=== PATIENT | female | born 1955 | race Caucasian/White ===

== ENCOUNTER 2018-01-01 19:19 | Emergency (ER) | payer OTHER ==
[~2018-01-01] VITALS: Ht 154.9 cm; Wt 81.6 kg
[~2018-01-01 19:19] MED LIST: TOPROL XL25 M1 PO
--- NOTE | 2018-01-01 22:25 | ED GENERAL ADULT ---
History of Present Illness General Chief Complaint: General Adult Stated Complaint: SIB WALK IN HIGH BLOOD PRESURE Source: patient Exam Limitations: no limitations Vital Signs & Intake/Output Vital Signs & Intake/Output Vital Signs Date Time Temp Pulse Resp B/P B/P Pulse O2 O2 Flow FiO2 Mean Ox Delivery Rate 01/02 0300 68 18 109/53 99 Room Air 01/02 0100 66 18 118/60 01/02 0000 66 18 110/64 01/01 2320 66 18 170/87 01/01 2310 68 18 181/93 01/01 2306 64 18 179/83 01/01 2304 64 18 179/83 01/01 2300 70 18 192/95 01/01 2258 70 18 192/95 01/01 2245 200/98 01/01 1932 97.9 83 18 183/96 98 Room Air ED Intake and Output 01/02 0000 01/01 1200 Intake Total 0 Output Total Balance 0 Intake, Oral 0 Patient 180 lb Weight Weight Reported by Patient Measurement Method Allergies Coded Allergies: NO KNOWN ALLERGIES (11/05/15) Reconcile Medications Carvedilol 12.5 MG TABLET 1 TAB PO BID HIGH BLOOD PRESSURE Metoprolol Succ XL (Toprol XL) 25 MG TAB 1 TAB PO DAILY HIGH BLOOD PRESSURE Triage Note: PT FROM HOME C/O HTN X3 DAYS. PT SENT IN BY WALK IN CLINIC FOR HTN WITH MIGRAINE/HEAD PAIN FOR THE PAST 3 DAYS. PT DENIES BLURRY VISION. PT STATES PHOTOSENSIVITY. PTS BP IN TRIAGE 183/96. PT IS CURRENTLY ON 3 DIFFERENT BP MEDICATIONS WITHOUT RELIEF. PT DID STATES SHE MISSED SOME DOSES OF MEDICATION THIS PAST WEEKEND D/T HEADACHE SHE THOUGHT WAS A SIDE EFFECT. PT IS LETHARGIC AND DIZZY. 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 yes Onset: Gradual Duration: day(s):, waxing and waning Timing: recent history Injury Environment: home Severity: moderate Modifying Factors: Improves With: rest. Associated Symptoms: "My blood pressure is high." HPI: 62 yo woman h/o labile hypertension presents with headache and elevated blood pressure. She shares that for the past 3 days her blood pressure has been elevated with a sbp in the 180's-190's. Her baseline is 160/90's. She has noted headache and mild dizziness, without chest pain, shortness of breath, radiating pain. She is otherwise well. Past History Travel History Traveled to [place] past 21 day No Medical History Any Pertinent Medical History? see below for history Cardiovascular: hypertension, ATHEROSCLEROSIS Hepatic: cholelithiasis Surgical History Surgical History: non-contributory Psychosocial History Who do you live with Spouse Services at Home None What is your primary language Upper Sorbian Tobacco Use: Quit >30 days ago Family History Hx Contributory? No Review of Systems Review of Systems Constitutional: Reports: no symptoms. EENTM: Reports: no symptoms. Respiratory: Reports: no symptoms. Cardiovascular: Reports: no symptoms. GI: Reports: no symptoms. Genitourinary: Reports: no symptoms. Musculoskeletal: Reports: no symptoms. Skin: Reports: no symptoms. Neurological/Psychological: Reports: no symptoms. Hematologic/Endocrine: Reports: no symptoms. Immunologic/Allergic: Reports: no symptoms. All Other Systems: Reviewed and Negative Physical Exam Physical Exam General Appearance: mild distress Comments: Review of Systems - except as otherwise noted in HPI Review of Systems Constitutional:no symptoms. EENTM:no symptoms. Respiratory:no symptoms. Cardiovascular:no symptoms. GI:no symptoms. Genitourinary:no symptoms. Musculoskeletal:no symptoms. Skin:no symptoms. Neurological/Psychological:no symptoms. Hematologic/Endocrine:no symptoms. Immunologic/Allergic:no symptoms. All Other Systems: Reviewed and Negative Physical Exam Physical Exam General Appearance: well developed/nourished, no apparent distress Head: atraumatic, normal appearance, scalp muscular tenderness to palpation. Eyes: Bilateral: normal appearance. Ears, Nose, Throat: normal pharynx, normal ENT inspection Neck: normal inspection, supple, full range of motion Respiratory: normal breath sounds, chest non-tender, no respiratory distress, quiet respiration, lungs clear Cardiovascular: regular rate/rhythm Gastrointestinal: normal bowel sounds, soft, non-tender, no organomegaly Back: normal inspection, normal range of motion Extremities: normal inspection, normal capillary refill, normal range of motion, no edema Neurologic/Psych: no motor/sensory deficits, awake, alert, oriented x 3 Skin: intact, normal color, warm/dry Core Measures ACS in differential dx? No CVA/TIA Diagnosis: No Sepsis Present: No Sepsis Focused Exam Completed? No Progress Differential Diagnoses I considered the following diagnoses in my evaluation of the patient: hypertensive urgency vs migraine vs other. Plan of Care: Orders Procedure Date/time Status TROPONIN LEVEL 01/02 0100 Complete EKG 07/25 0100 Active TROPONIN LEVEL 01/01 2211 Complete COMPREHENSIVE METABOLIC PANEL 01/01 2211 Complete CBC WITHOUT DIFFERENTIAL 01/01 2211 Complete EKG 01/01 193 Active Current Medications Sig/Souleymane Start time Last Medication Dose Stop Time Status Admin Hydralazine HCl 10 MG ONCE ONE 01/01 2345 CAN (Apresoline) 01/01 234 Laboratory Tests 01/02/18 0105: Troponin I < 0.01 01/01/182222: Anion Gap 15, Estimated GFR > 60, BUN/Creatinine Ratio 22.9, Glucose 89, Calcium 9.7, Total Bilirubin 1.0, AST 44 H, ALT 29, Alkaline Phosphatase 76, Troponin I < 0.01, Total Protein 8.5 H, Albumin 5.0, Globulin 3.5, Albumin/Globulin Ratio 1.4, CBC w Diff NO MAN DIFF REQ, RBC 4.72, MCV 83.3, MCH 28.0, MCHC 33.7, RDW 16.4 H, MPV 8.8, Gran % 61.4, Lymphocytes % 30.2, Monocytes % 5.5, Eosinophils % 2.2, Basophils % 0.7, Absolute Granulocytes 7.6 H, Absolute Lymphocytes 3.8 H, Absolute Monocytes 0.7 H, Absolute Eosinophils 0.3, Absolute Basophils 0.1 Diagnostic Imaging: Viewed by Me: CT Scan. Discussed w/RAD: CT Scan. Radiology Impression: PATIENT: CESIA RAMIREZ PRESENT AGE: 62 PATIENT ACCOUNT NO: [id number] : 57 LOCATION: [facility] ORDERING PHYSICIAN: Hari Soliman MD SERVICE DATE: 01/01/18 EXAM TYPE: CAT - CT HEAD WO IV CONTRAST EXAMINATION: CT HEAD WITHOUT CONTRAST CLINICAL INFORMATION: Headache. COMPARISON: May 11, 2009. TECHNIQUE: Contiguous axial images of the brain were obtained without IV contrast. DLP: 621 mGy-cm. FINDINGS : There are no pathologic extra-axial fluid collections. The lateral, third, fourth ventricles are nondilated and concordant with the appearance of the sulci. There is no evidence for acute intraparenchymal hemorrhage or infarct. There is neither mass nor mass effect. 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 There is no shift of midline structures. The paranasal sinuses and mastoid air cells are clear. There are no osseous lesions. IMPRESSION: No evidence for acute intracranial injury. 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 <Electronically signed in Other Vendor System> SIGNED BY: Joel Stacy MD 01/02/18 0004 Initial ED EKG: sinus, no acute change Repeat EKG: unchanged Departure Departure Disposition: HOME OR SELF CARE Condition: Stable Clinical Impression Primary Impression: Hypertension Secondary Impressions: Headache Referrals: Alyssa Hess MD (PCP/Family) Departure Forms: Customer Survey General Discharge Information Prescriptions: Current Visit Scripts Carvedilol 1 TAB PO BID #60 TAB Comments 01/02/18, 3:06AM... sbp dropped pt feeling better labs/ct scan benign/ekg and trop benign x2 discussed at length... will increase her coreg from 6.25 to 12.5... pt to follow up with [facility] this week. Critical Care Note Critical Care Note Critical Care Time: non-applicable
[2018-01-01 22:37] LABS: ABSOLUTE BASOPHIL COUNT 0.1 /CUMM (0.0-0.2); ABSOLUTE EOSINOPHIL COUNT 0.3 /CUMM (0.0-0.7); ABSOLUTE GRANULOCYTE CT 7.6 /CUMM (1.4-6.5); ABSOLUTE LYMPH COUNT 3.8 /CUMM (1.2-3.4); ABSOLUTE MONOCYTE COUNT 0.7 /CUMM (0.10-0.60); BASOPHIL % 0.7 % (0.0-2.0); EOSINOPHIL % 2.2 % (0-5); HEMATOCRIT 39.3 % (37-47); MEAN CORPUSCULAR HGB CONC 33.7 G/DL (33.0-37.0); MEAN CORPUSCULAR VOLUME 83.3 FL (81.0-99.0); MEAN PLATELET VOLUME 8.8 FL (7.4-10.4); RBC DISTRIBUTION WIDTH 16.4 % (11.5-14.5); RED BLOOD CELL CT 4.72 /CUMM (4.20-5.40); WHITE BLOOD CELL COUNT 12.4 /CUMM (4.8-10.8)
[2018-01-01 22:52] LABS: GRANULOCYTE % 61.4 % (42.2-75.2)
--- NOTE | 2018-01-02 00:04 | CT SCAN REPORT ---
EXAMINATION: CT HEAD WITHOUT CONTRAST CLINICAL INFORMATION: Headache. COMPARISON: May 11, 2009. TECHNIQUE: Contiguous axial images of the brain were obtained without IV contrast. DLP: 621 mGy-cm. FINDINGS: There are no pathologic extra-axial fluid collections. The lateral, third, fourth ventricles are nondilated and concordant with the appearance of the sulci. There is no evidence for acute intraparenchymal hemorrhage or infarct. There is neither mass nor mass effect. 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 There is no shift of midline structures. The paranasal sinuses and mastoid air cells are clear. There are no osseous lesions. IMPRESSION: No evidence for acute intracranial injury.
[2018-01-02 03:00] VITALS: BP 109/53
[2018-01-02] MEDS ORDERED: CARVEDILOL12.5 M1 PO (03:06)
== END 2018-01-02 03:21 ==
LOC: ERH 19:19
PROVIDERS: Pediatrics
DX: I10 Essential (primary) hypertension (principal); R51 Headache; Z87.891 Personal history of nicotine dependence
CPT/HCPCS: 93005; 93010; 96374; J0360